=== PATIENT | male | born 1970 | race Caucasian/White ===

== ENCOUNTER 2017-10-16 13:59 | Emergency (ER) | payer SELFPAY ==
[~2017-10-16] VITALS: Ht 180.3 cm; Wt 84.0 kg
[2017-10-16 14:07] VITALS: BP 120/93; PULSE 71; RESP 16; TEMP 98.6; O2SAT 97
--- NOTE | 2017-10-16 14:25 | PD ---
HPI Chief Complaint: Flank/Kidney Pain Time Seen by Provider: 14:14 Travel History International Travel<30 days: No Contact w/Intl Traveler<30days: No Traveled to known affect area: No History of Present Illness HPI This 46-year-old male says he been having left flank pain off and on for 2 weeks. Says only when the pain first started it was quite severe. It is never really gone away completely. Times is more severe than at others. He does seem to be worse when he tries to move. He does not recall any history of injury. He has never had a kidney stone. He has noted some dark urine at times. He has no history of abdominal surgery. He did have a 40 pound weight loss over the last year which was delivered limited diet and some supplements. He says he is starting to feel a bit nauseated in the morning. He took some antibiotics for about 3 days which documented the pain. He has not had fever or chills. He has not been coughing. PFSH Past Medical History Hx Anticoagulant Therapy: No Diabetes: No Social History Tobacco Use: No Allergies-Medications (Allergen,Severity, Reaction): Coded Allergies: No Known Allergies (Unverified , 10/16/17) Reported Meds & Prescriptions Reported Meds & Active Scripts Active No Active Prescriptions or Reported Medications Review of Systems General / Constitutional: No: Fever, Chills Eyes: No: Diploplia, Blurred Vision HENT: No: Headaches, Vertigo Cardiovascular: No: Chest Pain or Discomfort, Palpitations Respiratory: No: Cough, Shortness of Breath Gastrointestinal: Positive: Nausea, No: Vomiting, Diarrhea Genitourinary: Positive: Flank Pain Skin: No Rash, No Itching Psychiatric: No: Anxiety, Depression Hematologic/Lymphatic: No: Easy Bruising Physical Exam Narrative GENERAL: Well-developed male SKIN: Focused skin assessment warm/dry. HEAD: Atraumatic. Normocephalic. EYES: Pupils equal and round. No scleral icterus. No injection or drainage. ENT: No nasal bleeding or discharge. Mucous membranes pink and moist. NECK: Trachea midline. No JVD. CARDIOVASCULAR: Regular rate and rhythm. No murmur appreciated. RESPIRATORY: No accessory muscle use. Clear to auscultation. Breath sounds equal bilaterally. GASTROINTESTINAL: Abdomen soft, non-tender, nondistended. Hepatic and splenic margins not palpable. There is left flank tenderness. There is no rash MUSCULOSKELETAL: No obvious deformities. No clubbing. No cyanosis. No edema. NEUROLOGICAL: Awake and alert. No obvious cranial nerve deficits. Motor grossly within normal limits. Normal speech. PSYCHIATRIC: Appropriate mood and affect; insight and judgment normal. Data Data Last Documented VS Vital Signs Date Time Temp Pulse Resp B/P (MAP) Pulse Ox O2 Delivery O2 Flow Rate FiO2 10/16/17 14:07 98.6 71 16 120/93 (102) 97 Orders Orders Complete Blood Count With Diff (10/16/17 14:21) Comprehensive Metabolic Panel (10/16/17 14:21) Lipase (10/16/17 14:21) Urinalysis - C+S If Indicated (10/16/17 14:21) Ct Abd/Pel W/O Iv Contrast (10/16/17 14:21) Labs Laboratory Tests Test 10/16/17 14:30 10/16/17 14:40 Urine Color YELLOW Urine Turbidity CLEAR Urine pH 6.0 Urine Specific [place] 1.020 Urine Protein NEG mg/dL Urine Glucose (UA) NEG mg/dL Urine Ketones NEG mg/dL Urine Occult Blood NEG Urine Nitrite NEG Urine Bilirubin NEG Urine Leukocyte Esterase NEG Urine Squamous Epithelial Cells 0-5 /hpf Urine Mucus FEW /lpf Microscopic Urinalysis Comment CULT NOT INDICATED White Blood Count 12.1 TH/MM3 Red Blood Count 5.35 MIL/MM3 Hemoglobin 15.9 GM/DL Hematocrit 48.5 % Mean Corpuscular Volume 90.7 FL Mean Corpuscular Hemoglobin 29.7 PG Mean Corpuscular Hemoglobin Concent 32.7 % Red Cell Distribution Width 12.6 % Platelet Count 277 TH/MM3 Mean Platelet Volume 8.3 FL Neutrophils (%) (Auto) 70.5 % Lymphocytes (%) (Auto) 18.4 % Monocytes (%) (Auto) 6.6 % Eosinophils (%) (Auto) 3.6 % Basophils (%) (Auto) 0.9 % Neutrophils # (Auto) 8.6 TH/MM3 Lymphocytes # (Auto) 2.2 TH/MM3 Monocytes # (Auto) 0.8 TH/MM3 Eosinophils # (Auto) 0.4 TH/MM3 Basophils # (Auto) 0.1 TH/MM3 CBC Comment DIFF FINAL Differential Comment Blood Urea Nitrogen 16 MG/DL Creatinine 0.94 MG/DL Random Glucose 96 MG/DL Total Protein 7.3 GM/DL Albumin 3.8 GM/DL Calcium Level 8.7 MG/DL Alkaline Phosphatase 60 U/L Aspartate Amino Transf (AST/SGOT) 21 U/L Alanine Aminotransferase (ALT/SGPT) 32 U/L Total Bilirubin 0.8 MG/DL Sodium Level 138 MEQ/L Potassium Level 4.0 MEQ/L Chloride Level 106 MEQ/L Carbon Dioxide Level 25.7 MEQ/L Anion Gap 6 MEQ/L Estimat Glomerular Filtration Rate 86 ML/MIN Lipase 136 U/L [facility] Medical Decision Making Medical Screen Exam Complete: Yes Emergency Medical Condition: Yes Medical Record Reviewed: Yes Differential Diagnosis Differential includes skeletal pain, renal colic, space-occupying lesion Narrative Course Urine is negative for blood. Hemoglobin is 15.9. White count 12,000. Liver function is normal. CT scan was done to see if there might be a stone without hematuria and the CT is read as negative. It is noted that he has some low density areas in the right kidney which may be cysts. No etiology for the pain has been found and it may be musculoskeletal Diagnosis Primary Impression: Musculoskeletal back pain Scripts Hydrocodone-Acetaminophen (Hydrocodone-Acetaminophen) 5-325 mg Tab 1 TAB PO Q4H Y for PAIN, #15 TAB 0 Refills Prov: Jefe Randolph MD 10/16/17 Cyclobenzaprine (Flexeril) 10 Mg Tab 10 MG PO TID for Muscle Spasm, #30 TAB 0 Refills Prov: Jefe Randolph MD 10/16/17 Disposition: 01 DISCHARGE HOME Condition: Stable Jefe Randolph MD Oct 16, 2017 14:25
[2017-10-16 14:48] LABS: AUTOMATED NEUTROPHIL # 8.6 TH/MM3 (1.8-7.7); BASOPHIL # 0.1 TH/MM3 (0-0.2); BASOPHIL % 0.9 % (0.0-2.0); EOSINOPHIL # 0.4 TH/MM3 (0-0.4); EOSINOPHIL % 3.6 % (0.0-4.0); HEMATOCRIT 48.5 % (39.0-51.0); HEMOGLOBIN 15.9 GM/DL (13.0-17.0); LYMPH % 18.4 % (9.0-44.0); LYMPHOCYTE # 2.2 TH/MM3 (1.0-4.8); MEAN CELL VOLUME 90.7 FL (80.0-100.0); MEAN CORPUSCULAR HEMOGLOBIN 29.7 PG (27.0-34.0); MEAN CORPUSCULAR HGB CONC 32.7 % (32.0-36.0); MEAN PLATELET VOLUME 8.3 FL (7.0-11.0); MONO % 6.6 % (0.0-8.0); MONOCYTE # 0.8 TH/MM3 (0-0.9); NEUT % 70.5 % (16.0-70.0); PLATELET COUNT 277 TH/MM3 (150-450); RED BLOOD COUNT 5.35 MIL/MM3 (4.50-5.90); RED CELL DISTRIBUTION WIDTH 12.6 % (11.6-17.2); WHITE BLOOD COUNT 12.1 TH/MM3 (4.0-11.0)
[2017-10-16 14:49] LABS: BILIRUBIN, URINE NEG (NEG); BLOOD, URINE NEG (NEG); GLUCOSE,URINE NEG (NEG); KETONE, URINE NEG (NEG); NITRITE,URINE NEG (NEG); URINE LEUKOCYTE ESTERASE NEG (NEG)
[2017-10-16 14:51] LABS: URINE COLOR YELLOW (YELLW/STRAW)
--- NOTE | 2017-10-16 14:54 | RADRPT ---
EXAM DATE/TIME: 10/16/2017 14:40 [facility] COMPARISON: No previous studies available for comparison. INDICATIONS : Left flank pain x 2 weeks. ORAL CONTRAST: No oral contrast ingested. RADIATION DOSE: 13.08 CTDIvol (mGy) MEDICAL HISTORY : None SURGICAL HISTORY : None. ENCOUNTER: Initial ACUITY: 2 weeks PAIN SCALE: 8/10 LOCATION: Left flank TECHNIQUE: Volumetric scanning of the abdomen and pelvis was performed. Using automated exposure control and ad justment of the mA and/or kV according to patient size, radiation dose was kept as low as reasonably achievable to obtain optimal diagnostic quality images. DICOM format image data is available electro nically for review and comparison. FINDINGS: LOWER LUNGS: The visualized lower lungs are clear. LIVER: Homogeneous density without lesion. There is no dilation of the biliary tree. No calcified gallston es. SPLEEN: Normal size without lesion. PANCREAS: Within normal limits. KIDNEYS: Normal in size and shape. There is no mass, stone, or hydronephrosis. Small right renal low-density. ADRENAL GLANDS: Within normal limits. VASCULAR: There is no aortic aneurysm. BOWEL/MESENTERY: Diverticulosis of the transverse, descending and sigmoid colon without diverticulitis. There is no f ree intraperitoneal air or fluid. ABDOMINAL WALL: Within normal limits. RETROPERITONEUM: There is no lymphadenopathy. BLADDER: No wall thickening or mass. REPRODUCTIVE: Within normal limits. INGUINAL: There is no lymphadenopathy. Small fat-containing inguinal hernias. MUSCULOSKELETAL: Within normal limits for patient age. CONCLUSION: 1. No renal calculi or hydronephrosis. 2. Diverticulosis of the colon without diverticulitis. 3. Right renal low-density likely cysts. Scooter Castor MD on October 16, 2017 at 14:50 Board Certified Radiologist. This report was verified electronically.
[2017-10-16 14:56] LABS: MUCUS URINE FEW /lpf (OCC); SQUAMOUS EPITHELIAL CELL URINE 0-5 /hpf (0-5)
[2017-10-16 14:56] LABS: CHLORIDE 106 MEQ/L (98-107); SODIUM (NA) 138 MEQ/L (136-145)
[2017-10-16 14:59] LABS: CALCIUM 8.7 MG/DL (8.5-10.1)
[2017-10-16 15:00] LABS: ALBUMIN 3.8 GM/DL (3.4-5.0); BICARBONATE 25.7 MEQ/L (21.0-32.0); BLOOD UREA NITROGEN 16 MG/DL (7-18); GLUCOSE,RANDOM 96 MG/DL (74-106); LIPASE 136 U/L (73-393)
[2017-10-16 15:03] LABS: ALT (GPT) 32 U/L (12-78); AST (GOT) 21 U/L (15-37); CREATININE 0.94 MG/DL (0.60-1.30); GLOMERULAR FILTRATION RATE 86 ML/MIN (>89)
[2017-10-16 15:04] LABS: TOTAL BILIRUBIN ADULT 0.8 MG/DL (0.2-1.0); TOTAL PROTEIN 7.3 GM/DL (6.4-8.2)
[2017-10-16 15:06] LABS: ALKALINE PHOSPHATASE 60 U/L (45-117)
[2017-10-16] MEDS ORDERED: CYCL10TA PO (15:13)
[2017-10-16] MEDS ORDERED: HYDR-3516 PO (15:13)
[2017-10-16 15:29] VITALS: BP 122/86
== END 2017-10-16 15:31 | disposition home or self-care (01) ==
LOC: PHED 13:59
DX: M54.9 Dorsalgia, unspecified (principal)
CPT/HCPCS: 74176; 80053; 81001; 83690; 85025; 99284